=== PATIENT | female | born 1975 | race Caucasian/White ===

== ENCOUNTER → 2024-02-08 14:55 | Outpatient (REF) | payer OTHER, SELFPAY | LOC: WDC 14:55 | PROVIDERS: ATTENDING PHYSICIAN Family Medicine | DX: Z12.31 Encounter for screening mammogram for malignant neoplasm of breast (principal) | CPT/HCPCS: 77063; 77067 ==

== ENCOUNTER 2024-04-01 17:46 | Observation (INO) | payer OTHER, SELFPAY ==
[2024-04-01] VITALS (10 sets, daily range): BP systolic 83–152; BP diastolic 56–74; BMI 27.3; BMI 36.1
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
[2024-04-01 16:30] LABS: % Basophils 0.9 % (0-2); % Eosinophils 2.2 % (0-6); % Immature Granulocytes 0.3 % (0-0.5); % Monocytes 7.2 % (1.7-9.3); % Neutrophils 45.4 % (42.2-75.2); Absolute Basophils 0.1 10^3/uL (0-0.2); Absolute Eosinophils 0.2 10^3/uL (0-0.7); Absolute Lymphocytes 3.3 10^3/uL (1.2-3.4); Absolute Monocytes 0.5 10^3/uL (0.1-0.6); Absolute Neutrophils 3.4 10^3/uL (1.4-6.5); Hematocrit 36.7 % (37.0-47.0); Hemoglobin 12.4 g/dL (12.0-16.0); Mean Corp Hgb Conc. 33.8 g/dL (33.0-37.0); Mean Corpuscular Hgb 34.3 pg (27.0-31.0); Mean Corpuscular Volume 101.7 fL (81.0-99.0); Mean Platelet Volume 9.9 fL (7.4-10.4); Nucleated Red Blood Cells % 0 %; Platelet Count 237 10^3/uL (130-400); Red Blood Cell Count 3.61 10^6/uL (4.20-5.40); Red Cell Dist. Width 12.3 % (11.5-14.5); White Blood Cell Count 7.4 10^3/uL (4.8-10.8)
[2024-04-01 16:42] LABS: Blood Urea Nitrogen 12 mg/dl (7-17); Calcium 8.8 mg/dl (8.4-10.2); Carbon Dioxide 20 mmol/L (22-30); Chloride 107 mmol/L (98-107); Estimated Creatinine Clearance 78 ml/min; Glucose 89 mg/dl (70-99); Potassium 4.3 mmol/L (3.5-5.1); Sodium 138 mmol/L (135-145); eGFR > 60.00
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
--- NOTE | 2024-04-01 18:01 | EDRN ---
this RN called the receiving unit and notified them that paper report was going to be tubed up
[2024-04-01] MEDS: SENOKOT-S 2 TABLET PO (18:43)
--- NOTE | 2024-04-01 19:19 | PTCARENOTE ---
patient received senokot prior to speech swallow eval without any issues. pt did not cough before or after pills.
[2024-04-01] MEDS: TOPAMAX 150 MG PO (19:46)
[2024-04-01] MEDS: KLONOPIN 1 MG PO (19:47)
[2024-04-01] MEDS: MELATONIN 10 MG PO (22:03)
[2024-04-01] MEDS: DESYREL 50 MG PO (22:03)
[2024-04-02] VITALS (7 sets, daily range): BP systolic 85–112; BP diastolic 49–64; PULSE 60; O2SAT 96
[2024-04-02] MEDS: OFIRMEV 100 IV (04:27)
[2024-04-02 06:32] LABS: HDL Cholesterol 61 mg/dl; LDL Cholesterol, Calculated 180 mg/dl; Total Cholesterol 267 mg/dl (50-199); Triglyceride 131 mg/dl (10-149); Very Low Density Lipoprotein 26 mg/dl (0-30)
[2024-04-02] MEDS: LEXAPRO 30 MG PO (08:04)
[2024-04-02] MEDS: METAMUCIL, KONSYL 1 PACKET PO (08:04)
[2024-04-02] MEDS: VITAMIN B-12 500 MCG PO (08:05)
[2024-04-02] MEDS: THERAGRAN 1 TABLET PO (08:05)
[2024-04-02] MEDS: KLONOPIN 1 MG PO ×2 (08:05→20:25)
[2024-04-02] MEDS: INDERAL LA PO (08:08)
[2024-04-02] MEDS: TOPAMAX 100 MG PO (09:48)
[2024-04-02] MEDS: TYLENOL 650 MG PO ×2 (10:42→20:38)
--- NOTE | 2024-04-02 11:08 | PTOTSP ---
Physician: Please refer to OT for evaluation and treatment for ADLS and safe return to home environment.
--- NOTE | 2024-04-02 11:25 | PTOTSP ---
Speech Therapy
Presentation: Patient was oriented, followed commands, and communicated well during conversation. Patient demonstrated word finding difficulty (expressive aphasia) which is her baseline from previous head injuries; per patient.
Swallowing Function: TUBE PULLER observed patient with several bites of cracker and sips of thin liquids (straw) in which patient appeared to tolerate as she did not exhibit any overt clinical s/sx of aspiration or difficulty with mastication/ manipulation.
Patient denied any dysphagia complaints.
Recommendations:
1) regular consistency solids and thin liquids
2) standard aspiration precautions
3) consideration of cognitive linguistic/ speech language assessment to quantify functioning given her hx
4) Medications as tolerated
Plan: TUBE PULLER will continue to follow; pending hospitalization.
--- NOTE | 2024-04-02 11:32 | W.PN.HOSP.TC ---
Today's Communication/Plan
-
Monitor vital signs see plan
PT/OT
MRI pending
add baby aspirin
Assessment / Plan
Assessment / Plan
General: No Apparent Distress
HEENT: neck pain
Respiratory: Clear
Cardiac: S1/S2 and Regular Rhythm
GI: Soft and Non Tender
Musculoskeletal: No Edema
Neuro: AO x 3 and Other ( Nl speeech , POS drift of left arm. HX Chr Lt sided weakness . No drift on the Rt hand. )
Psych: Other (slow to answer questions at times.)
Reported MENA and neck pain, blurred vision and left sided paresthesias s/p Fall and Lt head injury
some of the sx are chronic
HX L sided weakness with Cervical and Lumbar disc problems and Sciatic
- S/p mechanical fall when she tripped over her dogs and fell
- associated acute on chr ambulatory dysfunction
- DDX : Possibly all postconcussion issues vs cervical issue. she does have hx of migraine and some sx could be related to that as well
- NEG CT CXspine, NEG HCT
- MRI pending
- PT/OT
- Neuro consult if abnormal brain MRI
add baby aspirin
HX Prx AF - In sinus Bradycardia
- not on AC
- c/w ASA
-c/w Propranolol
HX depression / anxiety
- c/w Clonazepam/ Escitalopram
HX migraine MENA
Follows up with neurology outpatient
Continue with Topamax
- on Zolmitriptan PRN
DVT Px: SCD, lovenox
Full code
Anticipated Discharge: 24 - 48 hours
Subjective/Interval History
-
Date of Service: April 02, 2024
has hadache
Objective Data
-
Vital Signs:
Vital Signs
Temp Pulse Resp BP Pulse Ox
98.7 F 59 18 94/49 96
04/02/24 07:33 04/02/24 07:33 04/02/24 07:33 04/02/24 07:33 04/02/24 07:33
[2024-04-02] MEDS: LOW STRENGTH ASPIRIN 81 MG PO (12:54)
--- NOTE | 2024-04-02 16:05 | CM ---
Alert awake oriented patient who lives with her mom and dad Anuja Hummel who lives in a 3 story home with 0 steps to enter and 14 to bed bathroom. She is independent in all activities of daily living.Offered VN she declined.SIMS letter given explained
All questions answered . Pt declined to sign SIMS letter Copy on chart,
No adaptive devices
Never had VN/SNF
Pharmacy [facility] [place]
PCP Dr Mcintyre
PLAN Home no needs
[2024-04-02] MEDS: LOVENOX 40 MG SC (17:09)
[2024-04-02] MEDS: TOPAMAX 150 MG PO (17:10)
[2024-04-02] MEDS: SENOKOT-S 2 TABLET PO (17:10)
[2024-04-02] MEDS: MELATONIN 10 MG PO (21:34)
[2024-04-02] MEDS: DESYREL 50 MG PO (21:34)
[2024-04-03 03:19] VITALS: BP 98/61
[2024-04-03] MEDS: VITAMIN B-12 500 MCG PO (07:42)
[2024-04-03] MEDS: KLONOPIN 1 MG PO (07:42)
[2024-04-03] MEDS: METAMUCIL, KONSYL 1 PACKET PO (07:42)
[2024-04-03] MEDS: TOPAMAX 100 MG PO (07:42)
[2024-04-03] MEDS: INDERAL LA 60 MG PO (07:43)
[2024-04-03] MEDS: LEXAPRO 30 MG PO (07:43)
[2024-04-03] MEDS: THERAGRAN 1 TABLET PO (07:43)
[2024-04-03] MEDS: LOW STRENGTH ASPIRIN 81 MG PO (07:44)
[2024-04-03 07:55] VITALS: BP 107/58
--- NOTE | 2024-04-03 10:31 | W.PN.HOSP.TC ---
Today's Communication/Plan
-
Monitor vital signs see plan
Appears to be feeling better, worked well with OT
Discharge today
Time of discharge 36 minutes
Assessment / Plan
Assessment / Plan
General: No Apparent Distress
HEENT: neck pain
Respiratory: Clear
Cardiac: S1/S2 and Regular Rhythm
GI: Soft and Non Tender
Musculoskeletal: No Edema
Neuro: AO x 3 and Other ( Nl speeech , POS drift of left arm. HX Chr Lt sided weakness . No drift on the Rt hand. )
Psych: Other (slow to answer questions at times.)
Reported MENA and neck pain, blurred vision and left sided paresthesias s/p Fall and Lt head injury
some of the sx are chronic
HX L sided weakness with Cervical and Lumbar disc problems and Sciatic
- S/p mechanical fall when she tripped over her dogs and fell
- associated acute on chr ambulatory dysfunction, worked well with OT. No issues. Discharge home today
Possibly secondary to postconcussion syndrome. she does have hx of migraine and some sx could be related to that as well
- NEG CT CXspine, NEG HCT
- MRI without any acute CVA, does appear to have some migraine.
- PT/OT
- Neuro consult if abnormal brain MRI
HX Prx AF - In sinus Bradycardia
- not on AC
- c/w ASA
-c/w Propranolol
HX depression / anxiety
- c/w Clonazepam/ Escitalopram
HX migraine MENA
Follows up with neurology outpatient
Continue with Topamax
- on Zolmitriptan PRN
DVT Px: SCD, lovenox
Full code
Anticipated Discharge: Today
Subjective/Interval History
-
Date of Service: April 03, 2024
Denies pain
Objective Data
-
Vital Signs:
Vital Signs
Temp Pulse Resp BP Pulse Ox
98.3 F 61 12 107/58 97
04/03/24 07:55 04/03/24 07:55 04/03/24 07:55 04/03/24 07:55 04/03/24 07:55
I&O
04/02/24 04/03/24 04/04/24
06:59 06:59 06:59
Intake Total 480 / 480
Balance 480 / 480
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
[2024-04-03 11:26] VITALS: BP 108/64
[2024-04-03] MEDS: TYLENOL 650 MG PO (11:33)
--- NOTE | 2024-04-03 13:54 | CM ---
MD entered order for discharge .
Spoke with pt in room . She said her dad Shaheed will drive her home.
Offered Vn she declined need.
PLAN Home no needs
[2024-04-03 15:16] VITALS: BP 108/65
== END 2024-04-03 15:18 | disposition home or self-care (01) ==
LOC: 4 EAST ACU 17:46
PROVIDERS: ADMITTING PHYSICIAN Internal Medicine; ATTENDING PHYSICIAN Internal Medicine; EMERGENCY PHYSICIAN Emergency Medicine; FAMILY PHYSICIAN Family Medicine
DX: G43.909 Migraine, unspecified, not intractable, without status migrainosus (principal); H53.8 Other visual disturbances; G89.29 Other chronic pain; W01.198A Fall on same level from slipping, tripping and stumbling with subsequent striking against other object, initial encounter; Y93.01 Activity, walking, marching and hiking; Y92.008 Other place in unspecified non-institutional (private) residence as the place of occurrence of the external cause; K58.9 Irritable bowel syndrome, unspecified; E78.00 Pure hypercholesterolemia, unspecified; F43.10 Post-traumatic stress disorder, unspecified; R41.89 Other symptoms and signs involving cognitive functions and awareness; R26.2 Difficulty in walking, not elsewhere classified; M54.2 Cervicalgia; R20.0 Anesthesia of skin; R53.1 Weakness; M47.812 Spondylosis without myelopathy or radiculopathy, cervical region; F32.A Depression, unspecified; F41.9 Anxiety disorder, unspecified; I48.0 Paroxysmal atrial fibrillation; R00.1 Bradycardia, unspecified; Z87.820 Personal history of traumatic brain injury; Z87.891 Personal history of nicotine dependence; Z88.5 Allergy status to narcotic agent; Z88.6 Allergy status to analgesic agent; Z79.3 Long term (current) use of hormonal contraceptives; Z79.51 Long term (current) use of inhaled steroids
CPT/HCPCS: 70450; 70551; 72125; 80048; 80061; 85025; 92610; 93005; 97163; 97165; 99285; G0378

== ENCOUNTER 2024-11-09 06:27 | Day surgery (SDC) | payer OTHER, SELFPAY | END 2024-11-09 11:26 | disposition home or self-care (01) | LOC: GI 06:27 | PROVIDERS: ATTENDING PHYSICIAN Surgery | DX: Z12.11 Encounter for screening for malignant neoplasm of colon (principal); Z86.0100 Personal history of colon polyps, unspecified; K63.89 Other specified diseases of intestine; K57.30 Diverticulosis of large intestine without perforation or abscess without bleeding | CPT/HCPCS: G0105 ==

== ENCOUNTER → 2025-02-08 14:31 | Outpatient (REF) | payer OTHER, SELFPAY | LOC: WDC 14:31 | PROVIDERS: ATTENDING PHYSICIAN Family Medicine | DX: Z12.31 Encounter for screening mammogram for malignant neoplasm of breast (principal) | CPT/HCPCS: 77063; 77067 ==

== ENCOUNTER → 2025-02-15 09:57 | Outpatient (REF) | payer OTHER, SELFPAY | LOC: WDC 09:57 | PROVIDERS: ATTENDING PHYSICIAN Family Medicine | DX: R92.8 Other abnormal and inconclusive findings on diagnostic imaging of breast (principal) | CPT/HCPCS: 76642 ==